=== PATIENT | male | born 1965 | race Caucasian/White ===

== ENCOUNTER → 2017-12-14 07:06 | Outpatient (CLI) | payer OTHER, SELFPAY ==
--- NOTE | 2017-12-14 | DI.MRI.S_ITS ---
PROCEDURE: MR ABDOMEN WO/W CON INDICATIONS: Possible liver lesion on ultrasound. TECHNIQUE: Coronal HASTE, axial 2D FLASH in- and [id number]; axial breath-hold T2 FSE. Dynamic axial VIBE during the administration of contrast; post-contrast coronal VIBE or 2D FLASH with fat saturation from the hepatic dome to the iliac crests. Optional diffusion weighted imaging and ADC may be performed. COMPARISON: [facility], US, US ABDOMEN COMPLETE, 12/07/2017, 9:07. FINDINGS: Image quality: Excellent. Lung bases: No basal pleural effusions. Heart size is normal. Solid organs: The liver is normal in size and smooth in contour. There are a few small cysts within the inferior right hepatic lobe measuring up to approximately 3 mm. There is minimal signal dropout on out of phase imaging compatible with mild fatty infiltration. There is subtle relative sparing along the gallbladder fossa. No discrete mass lesion is identified. No abnormal areas of enhancement or washout demonstrated following contrast administration. Biliary system is non dilated. Pancreas is normal in morphology. Spleen is normal in size and enhancement. No adrenal nodules. Both kidneys demonstrate normal size and enhancement, without hydronephrosis. Nodes and vessels: No retroperitoneal or mesenteric adenopathy by size criteria. Aorta and inferior vena cava are normal in size. Bowel and peritoneum: Visualized bowel loops are normal in caliber. No free fluid. Bones and soft tissues: No ventral hernias. Bone marrow is normal in overall signal. IMPRESSION: 1. No discrete hepatic mass or suspicious enhancement identified. 2. Mild hepatic steatosis with subtle relative sparing along the gallbladder fossa likely corresponding to the findings on recent ultrasound. Dictated by: James Liu M.D. on 12/14/2017 at 11:29 Approved by: James Liu M.D. on 12/14/2017 at 11:35
== END ==
PROVIDERS: Visit Provider Naturopath
DX: R93.2 Abnormal findings on diagnostic imaging of liver and biliary tract (principal)
CPT/HCPCS: 74183; A9579

== ENCOUNTER 2018-12-04 12:14 | Emergency (ER) | payer OTHER, SELFPAY ==
[2018-12-04 12:48] VITALS: BP 148/91; PULSE 74; RESP 18; TEMP 36.1; O2SAT 96
--- NOTE | 2018-12-04 12:55 | DI.RAD.S_ITS ---
PROCEDURE: XR CHEST 1V INDICATIONS: chest pain TECHNIQUE: One view of the chest was acquired. COMPARISON: [facility], , CHEST 1 VIEW, 09/02/2015, 14:20. FINDINGS: Surgical changes and devices: None. Lungs and pleura: Lungs are clear. No pleural effusions or pneumothorax. Mediastinum: Mediastinal contours appear normal. Heart size is normal. Bones and chest wall: No suspicious bony lesions. Overlying soft tissues appear unremarkable. IMPRESSION: No acute cardiopulmonary disease process. Dictated by: Lisbeth Willis MD, PhD on 12/04/2018 at 13:08 Approved by: Lisbeth Willis MD, PhD on 12/04/2018 at 13:08
[2018-12-04 13:40] LABS: INR 1.1 (0.9-1.3); Prothrombin Time 12.3 SECONDS (10.1-12.7)
[2018-12-04 13:43] LABS: Add Manual Diff / Slide Review NO; Basophils Absolute Auto 100 /uL (0-100); Basophils Percent Auto 1.2 % (0-2); Eosinophils Absolute Auto 100 /uL (0-450); Eosinophils Percent Auto 1.4 % (2-4); Hematocrit 47.5 % (41-53); Hemoglobin 16.1 g/dL (13.5-17.5); Lymphocytes Absolute Auto 1800 /uL (1100-4500); Lymphocytes Percent Auto 26.1 % (25-40); Mean Corpuscular Hemoglobin 29.9 PG (26-34); Mean Corpuscular Volume 88.2 fL (80-100); Monocytes Absolute Auto 600 /uL (0-900); Monocytes Percent Auto 9.3 % (3-14); Neutrophils Absolute Auto 4300 /uL (1500-7000); PTT Partial Thromboplastin Tim 29 SECONDS (26.4-36.2); Platelet Count 246 X10^3/uL (150-400); Red Blood Cell Count 5.38 X10^6/uL (4.5-5.9); White Blood Cell Count 6.9 X10^3/uL (4.5-11.0)
[2018-12-04 13:45] LABS: Alanine Aminotransferase 70 IU/L (21-72); Albumin 4.6 g/dL (3.5-5.0); Albumin Globulin Ratio 1.5 (1.0-2.8); Alkaline Phosphatase 64 U/L (38-126); Aspartate Aminotransferase 48 IU/L (17-59); BUN Creatinine Ratio 23.3 (6-22); Bilirubin Total 1.9 mg/dL (0.2-1.3); Blood Urea Nitrogen 21 mg/dL (9-20); Calcium 9.5 mg/dL (8.4-10.2); Carbon Dioxide 25 mmol/L (22-32); Chloride 104 mmol/L (98-107); Creatine Kinase 382 U/L (55-170); Estimated Glomerular Filt Rate > 60.0 mL/min (>60); Glucose 104 mg/dL (70-100); HEMOLYSIS < 15 (0-50); Lipase 71 U/L (23-300); Potassium 3.8 mmol/L (3.4-5.1); Sodium 140 mmol/L (137-145); Total Protein 7.6 g/dL (6.3-8.2)
[2018-12-04 13:57] LABS: Troponin I < 0.012 ng/mL (0.01-0.034)
[2018-12-04 14:00] VITALS: BP 140/93; PULSE 71; RESP 18
[2018-12-04 14:01] LABS: CKMB % Relative Index 0.8 % (1.5-5.0); Creatine Kinase MB 3.18 ng/mL (<2.37)
--- NOTE | 2018-12-04 14:15 | ED_ITS ---
HPI - Neuro Symptoms/Deficit General Chief Complaint: Neuro Symptoms/Deficit Stated Complaint: Self side face is stinging/quivering whole body LF Time Seen by Provider: 12/04/18 14:14 Source: patient Mode of arrival: ambulatory Limitations: no limitations History of Present Illness HPI Narrative: Patient is a 53-year-old male who is here for evaluation of a headache. He states that he gets ?migraines? he does not see his primary doctor or a headache specialist about this. He states that he gets headaches like when he has currently at least once a week. It occasionally causes him to miss work. He states that today he has 1 of his normal migraines. He stated that it started as normal way shortly after waking up this morning. He has not tried anything for prior to arrival. He normally just lets the headaches go away on their own after several hours. He stated that several hours prior to arrival here in the emergency department he started having ?tingling? on the left side of his face. He also states that her some heaviness on the left side of his face. He denies any other facial symptoms. He also stated that he had pain in his left upper extremity tingling in his left hand. Upon my evaluation the tingling in his left hand had completely resolved. He was still having some pain in his left upper extremity however he states that the blood pressure cup was not causing him any discomfort. He also states that he was still having some ?fullness? on his left side of his face but his symptoms have improved somewhat. Denies any rash. He did not associate the face and arm symptoms with a increase in his headache. denies any chest pain no shortness of breath. Related Data Allergies Allergy/AdvReac Type Severity Reaction Status Date / Time NSAIDS (Non-Steroidal Allergy Unknown PT STATES Unverified 11/08/17 13:02 Anti-Inflamma THAT IT IS ONLY TORADOL THAT HE CAN'T TAKE Review of Systems Constitutional Denies chills, Denies fever(s), Reports headache(s) and Denies weakness Eyes Denies blurry vision, Denies diplopia, Denies irritation and Denies itchy eyes ENT Ears, Nose, Mouth, and Throat: Denies vertigo, Denies dizziness, Reports headache(s), Denies neck pain, Denies nose pain, Denies disequilibrium and D enies throat swelling Comments: Tingling/fullness the left side of his face Cardiovascular Denies chest pain, Denies pedal edema and Denies dyspnea Respiratory Denies cough and Denies dyspnea Gastrointestinal Gastrointestinal: Denies abdominal pain, Denies nausea and Denies vomiting Genitourinary Denies dysuria Musculoskeletal Denies neck pain and Denies numbness Comments: Pain in his left upper extremity tingling his left hand Integumentary/Breasts Denies rash Neurologic Denies abnormal speech, Denies behavioral changes, Denies confusion, Denies vertigo, Denies dizziness, Reports headache(s), Denies numbness, Reports paresthesias, Denies disequilibrium and Denies weakness Psychiatric Denies behavioral changes and Denies confusion Hematologic/Lymphatic Denies easy bleeding and Denies easy bruising Allergic/Immunologic Denies urticaria, Denies itchy eyes and Denies throat swelling [facility] Medical History Frequent headaches (Acute) Family History (Updated 04/12/14 @ 00:00 by Lilli Leonardo PA-C) Mother Essential hypertension Social History Smoking Status: Never smoker Family History (Updated 04/12/14 @ 00:00 by Lilli Leonardo PA-C) Mother Essential hypertension Social History Smoking Status: Never smoker Exam Initial Vital Signs Initial Vital Signs: Vital Signs Temperature 97.0 F L 12/04/18 12:48 Pulse Rate 74 12/04/18 12:48 Respiratory Rate 18 12/04/18 12:48 Blood Pressure 148/91 H 12/04/18 12:48 Pulse Oximetry 96 12/04/18 12:48 Const General: cooperative, healthy appearing, comfortable, well developed, well groomed and No acute distress Orientation: alert, awake and oriented x3 HENMT Head: normal to inspection and normocephalic Eyes Conjunctivae: conjunctivae normal Pupils: PERRL EOM: EOM intact bilaterally Resp Effort & Inspection: normal respiratory effort Auscultation: clear to auscultation bilaterally Cardio Rate: regular rate Rhythm: regular rhythm GI Inspection: non-distended Palpation: soft, No firm and No tender Skin Lesions: no lesions Rashes: no rashes Neuro General: alert, awake and oriented x3 Cranial Nerves: CN's II-XI intact bilaterally Cognition: normal cognition Speech: speech normal Gait: normal gait Motor: muscle tone normal throughout Sensory Exam: no sensory deficits noted Extrem General: normal to inspection and capillary refill normal Left upper extremity: normal to inspection, full ROM, normal capillary refill and no joint enlargement; no cyanosis and no edema Psych Appearance: grossly normal and well kempt Scores GCS [place] coma scale eye opening: Spontaneous [place] coma scale verbal response: Orientated [place] coma scale motor response: Obey commands Yolanda coma scale total score: 15 HEART Score Heart Score history: Slightly Suspicious Heart Score EKG: Non-Specific repolarization disturbance Heart Score Age: 45-64 years old Heart Score risk factors: No known risk factors Heart Score troponin: < or = to normal limit Heart Score Total: 2 Course Orders Ordered: ED Orders 12/04/18 12:49 EKG-12 Lead Stat 12/04/18 12:55 XR chest 1V Stat 12/04/18 13:15 Complete Blood Count AUTO DIFF Stat Comprehensive Metabolic Panel Stat Lipase Stat Partial Thromboplastin Time Stat Prothrombin Time INR Stat Troponin & CK Cardiac Panel Stat Vital Signs - 8 hr 12/04/18 12:48 12/04/18 14:00 12/04/18 15:00 Temperature 97.0 F L Pulse Rate 74 71 75 Respiratory Rate 18 18 14 Blood Pressure 148/91 H Blood Pressure [Left Arm] 140/93 H 131/92 H Pulse Oximetry 96 100 MDM - Neuro Symptoms/Deficit Lab Data Attestation: I reviewed the patient's lab results. Result diagrams: 12/04/18 13:15 12/04/18 13:15 Lab Results 12/04/18 12/04/18 12/04/18 Range/Units 13:15 13:15 13:15 WBC 6.9 (4.5-11.0) X10^3/uL RBC 5.38 (4.5-5.9) X10^6/uL Hgb 16.1 (13.5-17.5) g/dL Hct 47.5 (41-53) % MCV 88.2 (80-100) fL MCH 29.9 (26-34) PG MCHC 34.0 (30-36) % RDW 13.0 (11.6-14.8) % Plt Count 246 (150-400) X10^3/uL Neut % (Auto) 62.0 (50-75) % Lymph % (Auto) 26.1 (25-40) % [place] % (Auto) 9.3 (3-14) % Eos % (Auto) 1.4 L (2-4) % Baso % (Auto) 1.2 (0-2) % Neut # (Auto) 4300 (2516-7172) /uL Lymph # (Auto) 1800 (9034-4135) /uL [place] # (Auto) 600 (0-900) /uL Eos # (Auto) 100 (0-450) /uL Baso # (Auto) 100 (0-100) /uL PT 12.3 (10.1-12.7) SECONDS INR 1.1 (0.9-1.3) APTT 29 (26.4-36.2) SECONDS Sodium 140 (137-145) mmol/L Potassium 3.8 (3.4-5.1) mmol/L Chloride 104 (98-107) mmol/L Carbon Dioxide 25 (22-32) mmol/L BUN 21 H (9-20) mg/dL Creatinine 0.90 (0.66-1.25) mg/dL Estimated GFR > 60.0 (>60) mL/min BUN/Creatinine Ratio 23.3 H (6-22) Glucose 104 H (70-100) mg/dL Calcium 9.5 (8.4-10.2) mg/dL Total Bilirubin 1.9 H (0.2-1.3) mg/dL AST 48 (17-59) IU/L ALT 70 (21-72) IU/L Alkaline Phosphatase 64 (38-126) U/L Total Creatine Kinase 382 H (55-170) U/L CK-MB (CK-2) 3.18 H (<2.37) ng/mL CK-MB (CK-2) Rel Index 0.8 L (1.5-5.0) % Troponin I < 0.012 (0.01-0.034) ng/mL Total Protein 7.6 (6.3-8.2) g/dL Albumin 4.6 (3.5-5.0) g/dL Globulin 3.0 (1.7-4.1) g/dL Albumin/Globulin Ratio 1.5 (1.0-2.8) Lipase 71 (23-300) U/L Imaging Data Chest x-ray: Radiologist's impression: [place] [id number] [place] [id number] XRay Report Signed Patient: Yoav Keller LMR#: [id number] : 1965Acct:[id number] Age/Sex: 53 / MDate of Service: 12/04/18 Loc: ED Accession Number: [id number] Procedure: XR chest 1V Ordering Provider: Logan Tenorio D.O. PROCEDURE: XR CHEST 1V INDICATIONS: chest pain TECHNIQUE: One view of the chest was acquired. COMPARISON: [facility], , CHEST 1 VIEW, 09/02/2015, 14:20. FINDINGS: Surgical changes and devices: None. Lungs and pleura: Lungs are clear. No pleural effusions or pneumothorax. Mediastinum: Mediastinal contours appear normal. Heart size is normal. Bones and chest wall: No suspicious bony lesions. Overlying soft tissues appear unremarkable. IMPRESSION: No acute cardiopulmonary disease process. Dictated by: Lisbeth Willis MD, PhD on 12/04/2018 at 13:08 Approved by: Lisbeth Willis MD, PhD on 12/04/2018 at 13:08 ECG Data Attestation: I personally reviewed and interpreted this ECG as follows: Prior ECG tracings: not available for review Interpretation: Sinus rhythm Normal axis Normal QTC Inverted T-waves V3 V4 V5 [address] changes MDM Narrative Medical decision making narrative: Patient does have a history of headaches. Has had a head CT in the past not specifically for headaches but had headaches long before his head CT was performed. Patient states that he was told there were no abnormalities. We had a long discussion regarding his headaches. Informed that he needed to talk with his primary doctor about potentially getting in to see a headache specialist. He has no skin changes on the side of his face that are consistent with zoster however we did discuss return precautions regarding this. Patient has a heart score of 2. He does have inverted T-waves on his EKG however no other signs of ischemia. His troponin is negative. his symptoms are not consistent with ACS. He is not having any chest pain. Will hold on workup for now. All the patient's symptoms today were objective findings. He had a normal neurologic exam. I do have a low suspicion for CVA given his symptoms and his exam. Will hold on head CT. I do feel that there is a high possibility that his symptoms are the result of an atypical migraine. I did discuss this with him and his . Will hold on further workup for now. Patient was given strict return precautions. Both he and his expressed understanding and agreement plan. Discharge Plan Departure Patient Disposition: Home Clinical Impression: Arm paresthesia, left, Facial paresthesia Headache Qualifiers: Headache type: unspecified Headache chronicity pattern: unspecified pattern Intractability: not intractable Qualified Code(s): R51 - Headache Discharge Date/Time: 12/04/18 15:28 Interventions: ED Discharge Assessment Last Done: 12/04/18 15:28 Instructions: DI for Headache Activity Restrictions/Additional Instructions: I do recommend that you contact your primary care provider to discuss the indications for referral to see Neurology/headache specialist. Return to the emergency department for any new or worsening symptoms
[2018-12-04 15:00] VITALS: BP 131/92; PULSE 75; RESP 14; O2SAT 100
== END 2018-12-04 15:28 | disposition home or self-care (01) ==
PROVIDERS: Emergency Provider Emergency Medicine
DX: R51 Headache (principal); R20.2 Paresthesia of skin; R20.9 Unspecified disturbances of skin sensation
CPT/HCPCS: 36415; 71045; 80053; 82550; 82553; 83690; 84484; 85025; 85610; 85730; 93005; 99283; 99285; 99291

== ENCOUNTER 2019-06-18 07:54 | Emergency (ER) | payer BC, SELFPAY ==
[2019-06-18 07:57] VITALS: BP 167/107; PULSE 72; RESP 20; TEMP 36.6; O2SAT 98
--- NOTE | 2019-06-18 08:07 | PC.NURSE ---
states, hurts to sit and laying down, +pacing in the room with spouse skin warm dry pink.
--- NOTE | 2019-06-18 08:15 | ED_ITS ---
HPI - Back Pain/Injury General Chief Complaint: Back Pain/Injury Stated Complaint: SI joint/nerve pain Time Seen by Provider: 06/18/19 08:13 Source: patient Mode of arrival: Ambulatory Limitations: no limitations History of Present Illness HPI Narrative: Patient is a 53-year-old male who presents with left-sided sciatica. He is not sure exactly what he did he does remember that 3 as he was brushing his daughter's hair when all the sudden he felt sharp shooting pain down his leg. He has been taking ibuprofen at home he went to the chiropractor he has done stretches he is wearing supportive belt nothing seems to be helping. He denies any change in bowel or bladder habits. MD Complaint: back pain Onset (ago): day(s) (3-4) Duration: constant Similar Symptoms Previously: No Location: lumbar spine (Left buttock area) Quality: burning, sharp and stabbing Related Data Previous Rx's Medication Instructions Recorded diazepam [Valium] 5 mg PO BID PRN #10 tab 06/18/19 hydrocodone-acetaminophen [[place]] 1 tab PO Q6H PRN #10 tab 06/18/19 prednisone 20 mg PO DAILY #5 tab 06/18/19 Allergies Allergy/AdvReac Type Severity Reaction Status Date / Time NSAIDS (Non-Steroidal Allergy Unknown PT STATES Verified 06/18/19 08:03 Anti-Inflamma THAT IT IS ONLY TORADOL THAT HE CAN'T TAKE Review of Systems Review of Systems Narrative: GENERAL: Denies chills,fever HEENT: Denies throat pain RESPIRATORY: Denies dyspnea, cough, wheezing CARDIOVASCULAR: Denies chest pain, palpitations GASTROINTESTINAL: Denies nausea, vomiting MUSCULOSKELETAL: See HPI SKIN: No rash, no laceration, no pruritus NEUROLOGIC: Denies weakness, dizziness, headache, numbness 8 point review of systems is negative except for those stated above and HPI Patient History Medical History Frequent headaches (Acute) Family History Mother Essential hypertension Social History Smoking Status: Never smoker alcohol intake frequency: 0-2 drinks per day Alcohol type: wine Substance Use Type: does not use Exam Initial Vital Signs Initial Vital Signs: Vital Signs Temperature 98 F 06/18/19 07:57 Pulse Rate 72 06/18/19 07:57 Respiratory Rate 20 06/18/19 07:57 Blood Pressure 167/107 H 06/18/19 07:57 Pulse Oximetry 98 06/18/19 07:57 GENERAL: Middle-aged male alert pacing uncomfortable HEENT: Head atraumatic,EOMI, pupils reactive CARDIOVASCULAR: Regular rate and rhythm without murmurs, rubs or gallops. RESPIRATORY: Breath sounds equal bilaterally, no wheezes rales or rhonchi. ABDOMEN: Soft, nontender. Normoactive bowel sounds all 4 quadrants. No guarding or rebound. BACK: No midline tenderness left buttock pain pain is reproducible to palpation. Sensation in lower legs intact and equal. EXTREMITIES: Normal range of motion, no clubbing or edema. Neurovascularly intact NEUROLOGICAL: Alert and oriented x4.Normal gait and speech. Cranial nerves II through XII grossly intact. SKIN: Warm, dry, no laceration, no petechiae, no rashes or lesions. Course Orders Ordered: Discontinued Medications Diazepam (Valium) 5 mg PO NOW ONE Stop: 06/18/19 08:14 Last Admin: 06/18/19 08:35 Dose: 5 mg Documented by: AMADO Ketorolac Tromethamine (Toradol) 30 mg IM NOW ONE Stop: 06/18/19 08:14 Last Admin: 06/18/19 08:35 Dose: 30 mg Documented by: AMADO Vital Signs Vital signs: Vital Signs - 8 hr 06/18/19 07:57 06/18/19 09:18 Temperature 98 F Pulse Rate 72 73 Respiratory Rate 20 15 Blood Pressure 167/107 H Blood Pressure [Right Arm] 164/116 H Pulse Oximetry 98 98 MDM - Back Pain/Injury MDM Narrative Medical decision making narrative: Patient does have some mild relief with Toradol and Valium. He had no complications from Toradol. It was listed as an allergy however he stated that he can have Toradol it must have been confused with something else he has had in the past without any issues. At this time I recommend he continue stretching and physical therapy. He may need an outpatient MRI however not indicated emergently at this time. Discharge Plan Departure Patient Disposition: Home Clinical Impression: Acute back pain with sciatica Qualifiers: Laterality: left Qualified Code(s): M54.42 - Lumbago with sciatica, left side Instructions: DI for Back Pain With Sciatica Activity Restrictions/Additional Instructions: *You have been diagnosed with back pain with sciatica *What to do: Continue stretches and chiropractic treatment. Recommend no heavy lifting like activity is encouraged. You may require outpatient MRI if needed however not indicated as an emergency at this time. *Continue to take medications as directed Prednisone 20 mg once a day for 5 days Valium 5 mg every 12 hours if needed for muscle spasm [place] 1 tablet every 6 hours if needed for severe pain *Follow up with your primary care provider in 2-3 days *Return to ER if you should have increasing weakness in legs changes in bowel or bladder habits or any new, worsening or concerning symptoms CONTROLLED SUBSTANCE DISCHARGE (Narcotoic/benzodiazepine/Flexeril/Phenergan) 1. You have been prescribed narcotic medications, it does have acetaminophen/Tylenol/paracetamol in it so do not take extra Tylenol or Tylenol containing products 2. Please understand that we cannot provide further refills of narcotics, benzodiazepines or controlled substances through the ED and her pain management will need to be through your provider. 3. While on these medications you cannot drive or operate heavy machinery. 4. You cannot sign legal documents or perform any duties such as this. 5. As long as you're taking opiate pain medications he should also be taking a stool softener such as Colace, Dulcolax, MiraLAX or prune juice, to help avoid constipation. Prescriptions: New prednisone 20 mg tablet 20 mg PO DAILY Qty: 5 RF: 0 diazepam [Valium] 5 mg tablet 5 mg PO BID PRN (Reason: muscle spasm) Qty: 10 RF: 0 hydrocodone-acetaminophen [[place]] 5-325 mg tablet 1 tab PO Q6H PRN (Reason: pain) Qty: 10 RF: 0 Referrals: Dominique Wong ND [Non-Staff] - Gabrielle Wong MD [Physician] -
[2019-06-18] MEDS: diazePAM 5 MG TABLET PO (08:35)
[2019-06-18] MEDS: KETOROLAC 60 MG/2 ML VIAL 30 MG IM (08:35)
[2019-06-18 09:18] VITALS: BP 164/116; PULSE 73; RESP 15; O2SAT 98
== END 2019-06-18 09:24 | disposition home or self-care (01) ==
PROVIDERS: Emergency Provider Emergency Medicine
DX: M54.42 Lumbago with sciatica, left side (principal)
CPT/HCPCS: 96372; 99282; 99283; J1885

== ENCOUNTER → 2019-10-28 19:36 | Outpatient (CLI) | payer BC, SELFPAY ==
--- NOTE | 2019-10-28 19:40 | DI.RAD.S_ITS ---
PROCEDURE: XR ANKLE RT MIN 3V INDICATIONS: R ankle pain post fall TECHNIQUE: 3 views of the ankle were acquired. COMPARISON: None. FINDINGS: Bones: No fractures or dislocations. Ankle mortise is normally aligned. No suspicious bony lesions. Small dorsal calcaneal enthesophyte is seen. Soft tissues: No tibiotalar joint effusion. Achilles tendon appears normal. IMPRESSION: No acute ankle fracture or dislocation. Dictated by: Avelino Strange M.D. on 10/28/2019 at 20:03 Approved by: Avelino Strange M.D. on 10/28/2019 at 20:04
--- NOTE | 2019-10-28 19:40 | DI.RAD.S_ITS ---
PROCEDURE: XR TIBIA FUBULA RT 2V INDICATIONS: FAll through deck, R knee swelling TECHNIQUE: 2 views of the tibia and fibula were acquired. COMPARISON: None. FINDINGS: Bones: No fractures or dislocations. No suspicious bony lesions. Soft tissues: No suspicious soft tissue calcifications or masses. IMPRESSION: No acute right lower leg fracture or dislocation. Dictated by: Avelino Strange M.D. on 10/28/2019 at 19:57 Approved by: Avelino Strange M.D. on 10/28/2019 at 19:57
--- NOTE | 2019-10-28 19:40 | DI.RAD.S_ITS ---
PROCEDURE: XR KNEE RT 3V INDICATIONS: FAll through deck, R knee swelling TECHNIQUE: 3 views of the knee were acquired. COMPARISON: None. FINDINGS: Bones: No fractures or dislocations. No suspicious bony lesions. Soft tissues: No significant joint effusion. No suspicious soft tissue calcifications. Soft tissue swelling along anterior aspect of patella and proximal patellar tendon is seen. IMPRESSION: No acute right knee fracture or dislocation. Soft tissue swelling along anterior aspect of right knee joint. No significant joint effusion. Dictated by: Avelino Strange M.D. on 10/28/2019 at 20:00 Approved by: Avelino Strange M.D. on 10/28/2019 at 20:03
== END ==
PROVIDERS: Referring Provider Nurse Practitioner; Visit Provider Nurse Practitioner
DX: M25.571 Pain in right ankle and joints of right foot (principal); M79.89 Other specified soft tissue disorders; M77.31 Calcaneal spur, right foot
CPT/HCPCS: 73562; 73590; 73610

== ENCOUNTER → 2020-12-18 18:00 | Outpatient (CLI) | payer BC, SELFPAY ==
[2020-12-18 18:34] LABS: COVID19 -Nasal RAPID Negative (Negative)
== END ==
PROVIDERS: Visit Provider Physician Assistant
DX: Z20.822 Contact with and (suspected) exposure to COVID-19 (principal)
CPT/HCPCS: 87635

== ENCOUNTER 2021-08-04 14:46 | Emergency (ER) | payer BC, SELFPAY ==
[2021-08-04] VITALS (11 sets, daily range): BP systolic 169–224; BP diastolic 102–125; PULSE 57–70; RESP 12–27; TEMP 37; O2SAT 94–99
--- NOTE | 2021-08-04 15:11 | DI.CT.S_ITS ---
PROCEDURE: CT HEAD/BRAIN WO CON INDICATIONS: head injury, htn TECHNIQUE: Noncontrast 4.5 mm thick angled axial sections acquired from the foramen magnum to the vertex, with coronal and sagittal reformats. For radiation dose reduction, the following was used: automated exposure control, adjustment of mA and/or kV according to patient size. COMPARISON: [facility], CT, CT HEAD WITHOUT CONTRAST, 07/29/2021, 8:29. [facility], CT, HEAD WITHOUT CONTRAST, 09/02/2015, 16:37. FINDINGS: Image quality: Excellent. CSF spaces: Basal cisterns are patent. No extra-axial fluid collections. Ventricles are normal in size and shape. Brain: No midline shift. No intracranial masses or hemorrhage. Andersen-white matter interface is normal. Skull and face: Calvarium and visualized facial bones are intact, without suspicious lesions. Sinuses: Visualized sinuses and mastoids are clear. IMPRESSION: No acute intracranial hemorrhage is seen. No acute intracranial process is seen. Stable from prior. Dictated by: Kai Sanchez M.D. on 08/04/2021 at 14:31 Approved by: Kai Sanchez M.D. on 08/04/2021 at 14:32
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
[2021-08-04 19:03] LABS: Add Manual Diff / Slide Review NO; Basophils Absolute Auto 100 /uL (0-100); Eosinophils Absolute Auto 200 /uL (0-450); Eosinophils Percent Auto 2.8 % (2-4); Hematocrit 47.3 % (41-53); Hemoglobin 16.7 g/dL (13.5-17.5); Lymphocytes Absolute Auto 2600 /uL (1100-4500); Lymphocytes Percent Auto 30.4 % (25-40); Mean Corpuscular HGB Conc 35.3 % (30-36); Mean Corpuscular Hemoglobin 30.6 PG (26-34); Mean Corpuscular Volume 86.8 fL (80-100); Monocytes Absolute Auto 800 /uL (0-900); Monocytes Percent Auto 9.2 % (3-14); Neutrophils Absolute Auto 4900 /uL (1500-7000); Neutrophils Percent Auto 56.6 % (50-75); Platelet Count 243 X10^3/uL (150-400); Red Blood Cell Count 5.45 X10^6/uL (4.5-5.9); Red Cell Distribution Width 13.2 % (11.6-14.8); White Blood Cell Count 8.7 X10^3/uL (4.5-11.0)
[2021-08-04 19:19] LABS: Alanine Aminotransferase 66 IU/L (<50); Albumin 4.6 g/dL (3.5-5.0); Albumin Globulin Ratio 1.4 (1.0-2.8); Alkaline Phosphatase 58 U/L (38-126); Aspartate Aminotransferase 35 IU/L (17-59); BUN Creatinine Ratio 23.5 (6-22); Bilirubin Total 1.1 mg/dL (0.2-1.3); Blood Urea Nitrogen 19 mg/dL (9-20); Calcium 9.9 mg/dL (8.4-10.2); Carbon Dioxide 27 mmol/L (22-32); Chloride 106 mmol/L (98-107); Creatine Kinase 66 U/L (55-170); Estimated Glomerular Filt Rate > 60.0 mL/min (>60); Globulin 3.4 g/dL (1.7-4.1); Glucose 103 mg/dL (70-100); HEMOLYSIS 18 (0-50); Lipase 72 U/L (23-300); Sodium 140 mmol/L (137-145)
[2021-08-04 19:30] LABS: Troponin I < 0.012 ng/mL (0.01-0.034)
[2021-08-04] MEDS: KETOROLAC 30 MG/ML VIAL 15 MG IV (19:30)
[2021-08-04] MEDS: CYCLOBENZAPRINE 10 MG PREPACK 1 BOTTLE MISC (20:48)
== END 2021-08-04 20:49 | disposition home or self-care (01) ==
PROVIDERS: Emergency Provider Emergency Medicine
DX: F07.81 Postconcussional syndrome (principal); I10 Essential (primary) hypertension
CPT/HCPCS: 36415; 70450; 80053; 82550; 83690; 84484; 85025; 93005; 93010; 96374; 99284; J1885

== ENCOUNTER → 2021-09-14 12:25 | Outpatient (CLI) | payer BC, SELFPAY ==
--- NOTE | 2021-09-14 | DI.MRI.S_ITS ---
PROCEDURE: MR HEAD/BRAIN WO CON INDICATIONS: POST CONCUSSION SYNDROME TECHNIQUE: Noncontrast axial T1 spin echo, axial T2 fast spin echo, sagittal and axial FLAIR, coronal T2 fast spin echo, axial gradient echo, axial diffusion and ADC through the brain. COMPARISON: [facility], CT, CT HEAD WITHOUT CONTRAST, 07/29/2021, 8:29. FINDINGS: Image quality: Excellent. CSF Spaces: Basal cisterns are patent. No extra-axial fluid collections. Ventricles are normal in size and shape. Brain: No intracranial masses or hemorrhage. Andersen/white matter interface is normal. Brainstem appears normal. Diffusion-weighted images demonstrate no acute ischemic insult. No chronic ischemic insults. Normal intravascular flow voids are present. Skull and face: Calvarium has normal marrow signal. Orbits appear normal. Sinuses: Mucosal thickening noted in the maxillary sinuses bilaterally, left greater than right. The mastoids are clear. IMPRESSION: 1. No acute intracranial disease process. 2. No areas of acute or chronic infarction. 3. No abnormal intracranial mass or mass effect. 4. No areas of acute or chronic intracranial hemorrhage. 5. Chronic bilateral maxillary sinusitis. Dictated by: Lisbeth Willis MD, PhD on 09/14/2021 at 16:16 Approved by: Lisbeth Willis MD, PhD on 09/14/2021 at 16:20
== END ==
PROVIDERS: PCP Naturopath; Referring Provider Psychiatry & Neurology Neurology; Visit Provider Psychiatry & Neurology Neurology
DX: F07.81 Postconcussional syndrome (principal); G44.309 Post-traumatic headache, unspecified, not intractable; G93.40 Encephalopathy, unspecified; S06.9X0S Unspecified intracranial injury without loss of consciousness, sequela
CPT/HCPCS: 70551

== ENCOUNTER 2023-10-03 19:03 | Emergency (ER) | payer OTHER, MEDICAID, SELFPAY ==
[2023-10-03] VITALS (11 sets, daily range): BP systolic 158–192; BP diastolic 99–115; PULSE 59–70; RESP 18; TEMP 36.8; O2SAT 95–99; BMI 29.9
[2023-10-03 19:50] LABS: Add Manual Diff / Slide Review NO; Basophils Absolute Auto 100 /uL (0-100); Eosinophils Absolute Auto 300 /uL (0-450); Eosinophils Percent Auto 2.9 % (2-4); Hematocrit 44.7 % (41-53); Hemoglobin 15.7 g/dL (13.5-17.5); Lymphocytes Absolute Auto 3500 /uL (1100-4500); Lymphocytes Percent Auto 34.9 % (25-40); Mean Corpuscular HGB Conc 35.1 % (30-36); Mean Corpuscular Hemoglobin 30.1 PG (26-34); Mean Corpuscular Volume 85.6 fL (80-100); Monocytes Absolute Auto 900 /uL (0-900); Neutrophils Absolute Auto 5200 /uL (1500-7000); Neutrophils Percent Auto 52.2 % (50-75); Platelet Count 239 X10^3/uL (150-400); Red Blood Cell Count 5.22 X10^6/uL (4.5-5.9); Red Cell Distribution Width 13.3 % (11.6-14.8)
[2023-10-03 20:03] LABS: Alanine Aminotransferase 48 IU/L (<50); Albumin 4.2 g/dL (3.5-5.0); Albumin Globulin Ratio 1.4 (1.0-2.8); Alkaline Phosphatase 67 U/L (38-126); Aspartate Aminotransferase 34 IU/L (17-59); BUN Creatinine Ratio 19.5 (6-22); Bilirubin Total 1.2 mg/dL (0.2-1.3); Blood Urea Nitrogen 15 mg/dL (9-20); Calcium 9.4 mg/dL (8.4-10.2); Carbon Dioxide 29 mmol/L (22-32); Chloride 106 mmol/L (98-107); Estimated Glomerular Filt Rate > 60 mL/min (>60); Globulin 3.1 g/dL (1.7-4.1); Glucose 112 mg/dL (70-100); HEMOLYSIS 28 (0-50); Lipase 92 U/L (23-300); Sodium 139 mmol/L (137-145); Total Protein 7.3 g/dL (6.3-8.2)
--- NOTE | 2023-10-03 20:38 | DI.US.S_ITS ---
PROCEDURE: US ABDOMEN LIMITED INDICATIONS: RUQ pain TECHNIQUE: Real-time scanning was performed of the abdominal and retroperitoneal organs, with image documentation. COMPARISON: , US, US ABDOMEN COMPLETE, 12/07/2017, 9:07. FINDINGS: Liver: Liver is normal in size. Increased liver parenchymal echotexture is seen. No discrete hepatic lesion. Gallbladder: There is no gallstone. No gallbladder wall thickening or pericholecystic fluid. No sonographic Diana sign. Biliary ducts: Intrahepatic bile ducts are non-dilated. Extrahepatic bile duct caliber measures 8.8 mm. Normal is 6-7 mm or less in diameter, or 10 mm or less post-cholecystectomy. Pancreas: Visualized portions of the pancreas are sonographically normal. Miscellaneous: No free abdominal fluid. IMPRESSION: 1. Hepatic steatosis, no discrete hepatic lesion. 2. Normal appearing gallbladder. 3. Prominent size of common bile duct. No evidence of choledocholithiasis. No intrahepatic biliary ductal dilatation. Dictated by: Avelino Strange M.D. on 10/03/2023 at 22:17 Approved by: Avelino Strange M.D. on 10/03/2023 at 22:19
[2023-10-04] VITALS: PULSE 61; O2SAT 96
[2023-10-04 00:01] VITALS: BP 162/99; PULSE 62; O2SAT 96
[2023-10-04 00:30] VITALS: PULSE 55; RESP 16; O2SAT 94
--- NOTE | 2023-10-04 00:52 | ED.GENADULT ---
HPI - General Adult General Chief complaint: Abdominal Pain Stated complaint: pain rt side going under ribs, tongue swelling Time Seen by Provider: 10/03/23 20:38 Source: patient Mode of arrival: Ambulatory History of Present Illness HPI narrative: 58-year-old gentleman with a prior history of diverticulitis with partial colon resection. Who tends to avoid medical care reports to the emergency department today complaining of 4 days of right upper quadrant pain radiating around through to his back. This morning also noted some tongue swelling coming cramping in his hands and legs, states that he has been under increasing stressors lately. He describes the pain is simply constant pain, does not change with eating or fasting. Bowel movement does not make a difference. If he sits up and leans forward it is more tender. He has not had any dysuria or hematuria. Related Data Previous Rx's Medication Instructions Recorded amoxicillin 875 mg-potassium 1 tab PO BID #14 tabs 03/05/21 clavulanate 125 mg tablet cyclobenzaprine 10 mg tablet 10 mg PO TID PRN muscle spasm #10 08/04/21 tabs ketorolac 10 mg tablet 10 mg PO TID PRN pain #14 tabs 08/04/21 Allergies Allergy/AdvReac Type Severity Reaction Status Date / Time NSAIDS (Non-Steroidal Allergy Unknown PT STATES Verified 03/05/21 07:31 Anti-Inflamma THAT IT IS ONLY TORADOL THAT HE CAN'T TAKE Review of Systems Review of Systems Narrative: Pertinent positive and negative findings as per HPI Patient History Medical History Generalized body aches Frequent headaches Family History Mother Essential hypertension Social History Smoking Status: Never smoker Smoking Status: Never smoker alcohol intake frequency: 0-2 drinks per day Alcohol type: wine Substance Use Type: does not use Exam Initial Vital Signs Initial Vital Signs: Vital Signs Temperature 98.3 F 10/03/23 19:11 Pulse Rate 69 10/03/23 19:11 Respiratory Rate 18 10/03/23 19:11 Blood Pressure 172/112 H 10/03/23 19:11 Pulse Oximetry 99 10/03/23 19:11 Oxygen Delivery Method Room Air 10/03/23 19:11 General: Healthy appearing, in no acute distress. Able to give a complete and coherent history. Well-nourished well-developed HEENT: Moist mucous membranes, normal sclera with reactive pupils, Neck: No JVD, supple Respiratory: Lungs are clear to auscultation, no wheezing no rales no rhonchi. Full and symmetrical air movement Cardiac: Regular rate and rhythm no murmurs no bruits Abdomen: Soft, mild tenderness in the right upper quadrant without rebound or guarding., good bowel tones, no flank pain Skin: Warm and dry, no rashes Neurologic: Grossly neurologically intact with no obvious asymmetries or abnormalities Extremities: No trauma, well perfused Psych: Cooperative, appropriate insight and affect Course Orders Ordered: ED Orders 10/03/23 19:17 EKG-12 Lead Stat 10/03/23 19:40 Complete Blood Count AUTO DIFF Stat Comprehensive Metabolic Panel Stat Lipase Stat 10/03/23 20:38 US abdomen limited Stat Ondansetron HCl (Ondansetron 4 Mg/2 Ml Inj) 4 mg IV NOW PRN PRN Reason: Nausea And Vomiting Ondansetron HCl (Ondansetron 4 Mg Odt) 4 mg PO NOW PRN PRN Reason: Nausea And Vomiting Vital Signs Vital signs: Vital Signs - 8 hr 10/03/23 19:11 10/03/23 21:09 10/03/23 21:10 Temperature 98.3 F Pulse Rate 69 70 69 Respiratory Rate 18 18 Blood Pressure 172/112 H 183/113 H Pulse Oximetry 99 99 97 Oxygen Delivery Method Room Air Room Air 10/03/23 21:11 10/03/23 21:11 10/03/23 21:17 Temperature Pulse Rate 63 Respiratory Rate Blood Pressure 183/113 H 190/104 H Pulse Oximetry 97 Oxygen Delivery Method 10/03/23 21:17 10/03/23 21:30 10/03/23 21:30 Temperature Pulse Rate 69 59 L Respiratory Rate 18 Blood Pressure 192/115 H Pulse Oximetry 98 97 Oxygen Delivery Method 10/03/23 21:34 10/03/23 21:34 10/03/23 22:00 Temperature Pulse Rate 65 Respiratory Rate Blood Pressure 173/106 H 158/99 H Pulse Oximetry 98 Oxygen Delivery Method 10/03/23 22:00 10/03/23 22:30 10/03/23 22:30 Temperature Pulse Rate 64 63 Respiratory Rate Blood Pressure 163/101 H Pulse Oximetry 96 95 Oxygen Delivery Method Room Air 10/03/23 23:00 10/03/23 23:00 10/03/23 23:30 Temperature Pulse Rate 64 63 Respiratory Rate Blood Pressure 180/102 H Pulse Oximetry 95 96 Oxygen Delivery Method Room Air 10/03/23 23:30 10/04/23 00:00 10/04/23 00:01 Temperature Pulse Rate 61 Respiratory Rate Blood Pressure 178/107 H 162/99 H Pulse Oximetry 96 Oxygen Delivery Method 10/04/23 00:01 Temperature Pulse Rate 62 Respiratory Rate Blood Pressure Pulse Oximetry 96 Oxygen Delivery Method Medical Decision Making Lab Data 10/03/23 19:40 10/03/23 19:40 Labs: Lab Results 10/03/23 Range/Units 19:40 WBC 10.0 (4.5-11.0) X10^3/uL RBC 5.22 (4.5-5.9) X10^6/uL Hgb 15.7 (13.5-17.5) g/dL Hct 44.7 (41-53) % MCV 85.6 (80-100) fL MCH 30.1 (26-34) PG MCHC 35.1 (30-36) % RDW 13.3 (11.6-14.8) % Plt Count 239 (150-400) X10^3/uL Neut % (Auto) 52.2 (50-75) % Lymph % (Auto) 34.9 (25-40) % [place] % (Auto) 9.0 (3-14) % Eos % (Auto) 2.9 (2-4) % Baso % (Auto) 1.0 (0-2) % Neut # (Auto) 5200 (5951-3186) /uL Lymph # (Auto) 3500 (6587-5827) /uL [place] # (Auto) 900 (0-900) /uL Eos # (Auto) 300 (0-450) /uL Baso # (Auto) 100 (0-100) /uL Sodium 139 (137-145) mmol/L Potassium 4.0 (3.4-5.1) mmol/L Chloride 106 (98-107) mmol/L Carbon Dioxide 29 (22-32) mmol/L BUN 15 (9-20) mg/dL Creatinine 0.77 (0.66-1.25) mg/dL Estimated GFR > 60 (>60) mL/min BUN/Creatinine Ratio 19.5 (6-22) Glucose 112 H (70-100) mg/dL Calcium 9.4 (8.4-10.2) mg/dL Total Bilirubin 1.2 (0.2-1.3) mg/dL AST 34 (17-59) IU/L ALT 48 (<50) IU/L Alkaline Phosphatase 67 (38-126) U/L Total Protein 7.3 (6.3-8.2) g/dL Albumin 4.2 (3.5-5.0) g/dL Globulin 3.1 (1.7-4.1) g/dL Albumin/Globulin Ratio 1.4 (1.0-2.8) Lipase 92 (23-300) U/L Urine Dip Bedside Urine Glucose Negative Bedside Urine Bilirubin - Negative Bedside Urine Ketone - Negative Urine Specific [place] 1.01 Bedside Urine Occult Blood - Negative Bedside Urine pH 7 Bedside Urine Protein - Negative Bedside Urine Urobilinogen - Negative Bedside Urine Nitrite - Negative Bedside Urine Leukocytes - Negative Esterase Point of care testing: Urine Dip Bedside Urine Glucose Negative Bedside Urine Bilirubin - Negative Bedside Urine Ketone - Negative Urine Specific [place] 1.01 Bedside Urine Occult Blood - Negative Bedside Urine pH 7 Bedside Urine Protein - Negative Bedside Urine Urobilinogen - Negative Bedside Urine Nitrite - Negative Bedside Urine Leukocytes - Negative Esterase Imaging Data us abd: Radiologist's Impression: PROCEDURE: US ABDOMEN LIMITED INDICATIONS: RUQ pain TECHNIQUE: Real-time scanning was performed of the abdominal and retroperitoneal organs, with image documentation. COMPARISON: [facility], US, US ABDOMEN COMPLETE, 12/07/2017, 9:07. FINDINGS: Liver: Liver is normal in size. Increased liver parenchymal echotexture is seen. No discrete hepatic lesion. Gallbladder: There is no gallstone. No gallbladder wall thickening or pericholecystic fluid. No sonographic Diana sign. Biliary ducts: Intrahepatic bile ducts are non-dilated. Extrahepatic bile duct caliber measures 8.8 mm. Normal is 6-7 mm or less in diameter, or 10 mm or less post-cholecystectomy. Pancreas: Visualized portions of the pancreas are sonographically normal. Miscellaneous: No free abdominal fluid. IMPRESSION: 1. Hepatic steatosis, no discrete hepatic lesion. 2. Normal appearing gallbladder. 3. Prominent size of common bile duct. No evidence of choledocholithiasis. No intrahepatic biliary ductal dilatation. Dictated by: Avelino Strange M.D. on 10/03/2023 at 22:17 MDM Narrative Medical decision making narrative: CC: Right upper quadrant pain for 4 days Complicating co-morbidities: Prior history of diverticulitis with surgery required Data collected from: patient Differential considered: Hepatitis, cholecystitis, gallbladder colic, choledocholithiasis, right lower lung pneumonia, constipation Exam documented above, pertinent findings include: Exam shows minimal tenderness in the right upper quadrant only. Remainder of exam is benign Lab Test results independently reviewed as above. Pertinent findings: CBC is unremarkable Chemistries are reassuring Lipase is within normal limits Independently reviewed EKG: Sinus rhythm at a rate of 67. Flipped T-waves anteriorly without any other ischemic changes Imaging studies independently reviewed: Ultrasound does not show gallbladder abnormalities, prominent bile duct size without evidence of choledocholithiasis or intrahepatic bear biliary ductal dilatation. Discussion: 58-year-old gentleman with right upper quadrant pain present for 4 days. Workup today shows no significant lab abnormalities, right upper quadrant ultrasound is benign. Patient is disgruntled that he has been waiting 5 hours in the emergency department for the workup that has proceeded. With shared decision-making we decided that not proceeding with a CT scan this evening with certainly acceptable. Encouraged him to return to the emergency department if symptoms worsen, next step in the workup would be a CT scan of the abdomen. He expresses understanding, questions are answered and he is safe for discharge Discharge Plan Departure Patient Disposition: Home Clinical Impression: Abdominal pain Qualifiers: Abdominal location: right upper quadrant Qualified Code(s): R10.11 - Right upper quadrant pain Instructions: DI for Abdominal Pain-Adult Activity Restrictions/Additional Instructions: Thank you for coming in today Your blood work does not show any evidence of acute infection, there is no liver abnormalities, kidney abnormalities or signs of acute pancreatitis. There was no evidence of anemia. The ultrasound shows a normal gallbladder, no evidence of gallstone stuck in the bile ducts. On your clinical exam I am not hearing anything that sounds like a pneumonia in the right lower part of your lungs, you do not have pain that would suggest you have an obstruction or need to go emergently to the operating room this evening. There was no skin changes to suggest shingles. At this time I do not have a complete explanation but I also do not suspect that there is a life-threatening etiology. I believe going home is safe. If you are continuing to have pain or symptoms change the next step in your workup would be a CT scan of the abdomen Prescriptions: No Action amoxicillin-pot clavulanate 875-125 mg tablet 1 tab PO BID Qty: 14 0RF cyclobenzaprine 10 mg tablet 10 mg PO TID PRN (Reason: muscle spasm) Qty: 10 0RF ketorolac 10 mg tablet 10 mg PO TID PRN (Reason: pain) Qty: 14 0RF Referrals: Dominique Wong ND [Primary Care Provider] - Stand Alone Forms: Patient Portal/API
[2023-10-04 01:06] VITALS: BP 155/86; PULSE 56; RESP 16; O2SAT 97
== END 2023-10-04 01:08 | disposition home or self-care (01) ==
PROVIDERS: Emergency Provider Emergency Medicine; PCP Naturopath
DX: R10.11 Right upper quadrant pain (principal)
CPT/HCPCS: 36415; 76705; 80053; 81003; 83690; 85025; 93005; 93010; 99284

== ENCOUNTER 2023-12-17 16:37 | Emergency (ER) | payer OTHER, MEDICAID, SELFPAY ==
[2023-12-17] VITALS (14 sets, daily range): BP systolic 168–185; BP diastolic 91–112; PULSE 67–77; RESP 18–22; TEMP 36.5; O2SAT 93–98; BMI 29.9
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
[2023-12-17 17:35] LABS: INR 0.9 (0.9-1.3); Prothrombin Time 10.8 SECONDS (9.4-12.5)
[2023-12-17 17:38] LABS: PTT Partial Thromboplastin Tim 33 SECONDS (25.1-36.5)
[2023-12-17 17:39] LABS: Alanine Aminotransferase 46 IU/L (<50); Albumin 4.3 g/dL (3.5-5.0); Albumin Globulin Ratio 1.5 (1.0-2.8); Alkaline Phosphatase 78 U/L (38-126); Aspartate Aminotransferase 31 IU/L (17-59); BUN Creatinine Ratio 21.5 (6-22); Bilirubin Total 1.2 mg/dL (0.2-1.3); Blood Urea Nitrogen 14 mg/dL (9-20); Calcium 9.3 mg/dL (8.4-10.2); Carbon Dioxide 25 mmol/L (22-32); Chloride 105 mmol/L (98-107); Creatine Kinase 131 U/L (55-170); Estimated Glomerular Filt Rate > 60 mL/min (>60); Globulin 2.8 g/dL (1.7-4.1); Glucose 202 mg/dL (70-100); HEMOLYSIS 47 (0-50); Lipase 69 U/L (23-300); Potassium 3.7 mmol/L (3.4-5.1); Sodium 138 mmol/L (137-145); Total Protein 7.1 g/dL (6.3-8.2)
[2023-12-17 17:50] LABS: Troponin I < 0.012 ng/mL (0.01-0.034)
[2023-12-17 17:55] LABS: Add Manual Diff / Slide Review NO; Basophils Absolute Auto 0 /uL (0-100); Basophils Percent Auto 0.3 % (0-2); Eosinophils Absolute Auto 200 /uL (0-450); Eosinophils Percent Auto 2.5 % (2-4); Hematocrit 45.9 % (41-53); Hemoglobin 16.3 g/dL (13.5-17.5); Lymphocytes Absolute Auto 2900 /uL (1100-4500); Lymphocytes Percent Auto 31.7 % (25-40); Mean Corpuscular HGB Conc 35.6 % (30-36); Mean Corpuscular Hemoglobin 30.7 PG (26-34); Mean Corpuscular Volume 86.1 fL (80-100); Monocytes Absolute Auto 800 /uL (0-900); Monocytes Percent Auto 8.3 % (3-14); Neutrophils Absolute Auto 5300 /uL (1500-7000); Neutrophils Percent Auto 57.2 % (50-75); Platelet Count 243 X10^3/uL (150-400); Red Blood Cell Count 5.33 X10^6/uL (4.5-5.9); Red Cell Distribution Width 13.5 % (11.6-14.8); White Blood Cell Count 9.2 X10^3/uL (4.5-11.0)
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
[2023-12-17] MEDS: ONDANSETRON 4 MG ODT PREPACK 1 BOTTLE MISC (22:00)
== END 2023-12-17 22:04 | disposition home or self-care (01) ==
PROVIDERS: Emergency Medicine; Emergency Provider Emergency Medicine; PCP Naturopath
DX: S20.213A Contusion of bilateral front wall of thorax, initial encounter (principal); R07.89 Other chest pain; R11.2 Nausea with vomiting, unspecified; W51.XXXA Accidental striking against or bumped into by another person, initial encounter
CPT/HCPCS: 36415; 71111; 71275; 74177; 80053; 82550; 83690; 83735; 84484; 85025; 85610; 85730; 93005; 99283; Q9967

== ENCOUNTER 2024-07-16 08:36 | Emergency (ER) | payer OTHER, MEDICAID, SELFPAY ==
[2024-07-16] VITALS (16 sets, daily range): BP systolic 122–166; BP diastolic 78–96; PULSE 49–70; RESP 16–22; TEMP 36.5–36.9; O2SAT 92–98; BMI 29.9
--- NOTE | 2024-07-16 09:27 | ED_ITS ---
HPI - Back Pain/Injury General Chief Complaint: Back Pain/Injury Stated Complaint: back pain Time Seen by Provider: 07/16/24 09:00 Source: patient History of Present Illness HPI Narrative: Patient here with for complaints mid and lower back pain that started yesterday morning it was playing with family on the floor. He could not get back up. Has not been able to walk very well. Denies any bowel or bladder incontinence or retention. No saddle paresthesia. Pain radiates down to both feet. With tingling. Shoes and socks removed for exam. No prior history of MRI or physical therapy or surgery in the back. This is the 3rd episode of back pain he has had recently Related Data Previous Rx's Medication Instructions Recorded amoxicillin 875 mg-potassium 1 tab PO BID #14 tabs 03/05/21 clavulanate 125 mg tablet cyclobenzaprine 10 mg tablet 10 mg PO TID PRN muscle spasm #10 08/04/21 tabs ketorolac 10 mg tablet 10 mg PO TID PRN pain #14 tabs 08/04/21 hydrocodone 5 mg-acetaminophen 325 1 tab PO Q6H PRN pain #20 tabs 07/16/24 mg tablet Allergies Allergy/AdvReac Type Severity Reaction Status Date / Time NSAIDS (Non-Steroidal Allergy Unknown PT STATES Verified 03/05/21 07:31 Anti-Inflamma THAT IT IS ONLY TORADOL THAT HE CAN'T TAKE Review of Systems Review of Systems Narrative: GENERAL: Negative chills, fatigue, malaise, fever, sweats. HEENT: Negative sinus pain, ear pain, sore throat RESPIRATORY: Negative dyspnea, cough CARDIOVASCULAR: Negative chest pain, palpitations GASTROINTESTINAL: Negative nausea, vomiting, abdominal pain : Negative dysuria, frequency, hematuria MUSCULOSKELETAL: Positive back, muscle or bony pain SKIN: Negative rash, skin lesions NEUROLOGIC: Negative weakness, positive numbness ROS Unobtainable: All systems reviewed & are unremarkable except as noted in HPI and below Patient History Medical History Generalized body aches Frequent headaches Family History Mother Essential hypertension Social History Smoking Status: Never smoker Smoking Status: Never smoker alcohol intake frequency: 0-2 drinks per day Alcohol type: wine Exam Narrative Exam Narrative: GENERAL: in no distress, not toxic not dyspneic HEAD: Normocephalic. EYES: Pupils equal round ENT: Mucous membranes moist. NECK: Trachea midline. CARDIOVASCULAR: Regular rate and rhythm RESPIRATORY: Clear to auscultation. Breath sounds equal bilaterally. No wheezes, rales, or rhonchi. GASTROINTESTINAL: Abdomen soft, non-tender EXTREMITIES: No gross deformities. Feet warm and soft strong pedal pulse brisk cap refills. BACK: No flank tenderness. Patient able to log roll to the left. There is reproducible bilateral lower parathoracic and paralumbar muscle tenderness. With limited range of motion at the waist due to pain. Increased leg pain with straight leg raises at 30?. NEURO: AOx4. Light touch intact bilateral feet and toes. Wiggles toes. Strong bilateral ankle flexion-extension as well as patellar reflexes. SKIN: Warm and dry PSYCH: Not anxious, is cooperative Initial Vital Signs Initial Vital Signs: Vital Signs Temperature 97.7 F 07/16/24 08:52 Pulse Rate 65 07/16/24 08:52 Respiratory Rate 16 07/16/24 08:52 Blood Pressure 166/92 H 07/16/24 08:52 Pulse Oximetry 96 07/16/24 08:52 Oxygen Delivery Method Room Air 07/16/24 08:52 Course Orders Ordered: Discontinued Medications Hydromorphone HCl (Hydromorphone 1 Mg Inj) 1 mg IV NOW ONE Stop: 07/16/24 09:27 Last Admin: 07/16/24 09:38 Dose: 1 mg Documented By: Hydromorphone HCl (Hydromorphone 1 Mg Inj) 1 mg IV NOW ONE Stop: 07/16/24 11:45 Last Admin: 07/16/24 11:48 Dose: 1 mg Documented By: Hydromorphone HCl (Hydromorphone 1 Mg Inj) 1 mg IV NOW ONE Stop: 07/16/24 13:48 Last Admin: 07/16/24 13:59 Dose: 1 mg Documented By: JARRET Lorazepam (Lorazepam 2 Mg/Ml Inj) 1 mg IV NOW ONE Stop: 07/16/24 10:40 Last Admin: 07/16/24 10:43 Dose: 1 mg Documented By: Ondansetron HCl (Ondansetron 4 Mg/2 Ml Inj) 4 mg IV NOW ONE Stop: 07/16/24 09:27 Last Admin: 07/16/24 09:38 Dose: 4 mg Documented By: Vital Signs Vital signs: Vital Signs - 8 hr 07/16/24 08:52 07/16/24 08:52 07/16/24 09:00 Temperature 97.7 F Pulse Rate 65 62 61 Respiratory Rate 16 Blood Pressure 166/92 H Pulse Oximetry 96 96 93 Oxygen Delivery Method Room Air 07/16/24 09:00 07/16/24 09:30 07/16/24 09:30 Temperature Pulse Rate 59 L Respiratory Rate Blood Pressure 143/81 H 153/86 H Pulse Oximetry 94 Oxygen Delivery Method 07/16/24 09:47 07/16/24 09:47 07/16/24 10:00 Temperature Pulse Rate 56 L 53 L Respiratory Rate Blood Pressure 142/96 H Pulse Oximetry 98 97 Oxygen Delivery Method 07/16/24 10:00 07/16/24 10:30 07/16/24 10:30 Temperature Pulse Rate 49 L Respiratory Rate Blood Pressure 151/95 H 138/85 Pulse Oximetry 95 Oxygen Delivery Method MDM - Back Pain/Injury Imaging Data MRI thoracic and lumbar spine: Radiologist's Impression: [place] [address] Magnetic Resonance Report Signed Patient: Yoav Keller MR#: [id number] : 1965 Acct:[id number] Age/Sex: 58 / M Date of Service: 07/16/24 Loc: ED Accession Number: [id number] Procedure: MR thoracic spine wo con Ordering Provider: Laz Giles MD PROCEDURE: MR THORACIC SPINE WO CON INDICATIONS: back pain/numbness legs TECHNIQUE: Noncontrast sagittal T1 spine echo and T2 fast spin echo, sagittal STIR, and T2 fast spin echo through the thoracic spine. COMPARISON: [facility], , MR LUMBAR SPINE WO CON, 07/16/2024, 10:39. FINDINGS: Image quality: Excellent. Alignment and Curvature: There is normal bony alignment. Bone Marrow: Marrow is of normal overall signal. No acute vertebral body compression fractures. Minimal chronic compressions of T7, T11, and T12. The Spinal Cord: Visualized spinal cord is normal in size and signal. Paraspinous Soft Tissues: No paravertebral masses. Miscellaneous: T5-T6: Mild left paracentral high signal disc protrusion abutting the left ventral cord. No central canal stenosis. Mild left lateral recess stenosis. T6-T7: Mild central posterior disc protrusion abutting the cord without canal stenosis. No foraminal stenosis. There is no canal stenosis or foraminal stenosis on this exam. IMPRESSION: 1. Thoracic cord is normal caliber and signal characteristics. 2. No canal stenosis or foraminal stenosis. 3. Small disc protrusions at T5-T6 and T6-T7. The T5-T6 left paracentral disc protrusion is likely relatively acute. 4. Old very mild compressions of T7, T11, and T12. Dictated by: Manuel Cates M.D. on 07/16/2024 at 11:32 Approved by: Manuel Cates M.D. on 07/16/2024 at 11:37 [place] [address] Magnetic Resonance Report Signed Patient: Yoav Keller MR#: [id number] : 1965 Acct:[id number] Age/Sex: 58 / M Date of Service: 07/16/24 Loc: ED Accession Number: [id number] Procedure: MR lumbar spine wo con Ordering Provider: Laz Giles MD PROCEDURE: MR LUMBAR SPINE WO CON INDICATIONS: back pain/numbness legs TECHNIQUE: Noncontrast sagittal T1 spin echo and T2 fast echo, sagittal STIR, and T2 fast spin echo through the lumbar spine. In cases with scoliosis, additional coronal T2 fast spin echo may be performed. COMPARISON: [facility], CT, CT TRAUMA CHEST ABDOMEN PELVIS, 12/17/2023, 21:06. FINDINGS: Image quality: Excellent. Alignment and Curvature: There is normal bony alignment. Bone Marrow: Marrow is of normal overall signal. No acute vertebral body compression fractures. Spinal Cord: Conus medullaris terminates at the L1 level. Visualized cord demonstrates normal signal and size. Paraspinous Soft Tissues: No paravertebral masses. T12-L1: No canal stenosis or foraminal stenosis. L1-L2: Mild disc height loss. Disc bulge. Minimal facet hypertrophy. No canal stenosis or foraminal stenosis. L2-L3: Disc bulge. Facet and ligament hypertrophy. Mild canal stenosis. No foraminal stenosis. L3-L4: Disc bulge with mild superimposed central posterior disc protrusion indenting on the ventral canal. Facet hypertrophy. Moderate canal stenosis. Reference axial T2 image 21 of series 8. Mild left foraminal stenosis. L4-L5: Disc bulge with central posterior superimposed disc protrusion and mild inferior disc extrusion. Facet and ligament hypertrophy. Severe canal stenosis. Reference axial T2 image 26 of series 8. The inferior extruded disc material is well seen on image 10 of sagittal series 5. Moderate bilateral foraminal narrowing with flattening deformity on the exiting bilateral L4 nerve roots. L5-S1: Chronic disc height loss. Disc bulge. Facet hypertrophy. No central canal stenosis. Moderate right foraminal narrowing and mild left foraminal narrowing. IMPRESSION: 1. No acute bony abnormality. 2. Canal stenosis is mild at L2-L3, moderate at L3-L4, and severe at L4-L5. 3. Multilevel foraminal narrowing as described above. Findings include moderate bilateral foraminal narrowing at L4-L5 and moderate right foraminal narrowing at L5-S1. Dictated by: Manuel Cates M.D. on 07/16/2024 at 11:38 Approved by: Manuel Cates M.D. on 07/16/2024 at 11:44 [facility] Narrative Medical decision making narrative: Patient here with for complaints mid and lower back pain that started yesterday morning it was playing with family on the floor. He could not get back up. Has not been able to walk very well. Denies any bowel or bladder incontinence or retention. No saddle paresthesia. Pain radiates down to both feet. With tingling. Shoes and socks removed for exam. No prior history of MRI or physical therapy or surgery in the back. This is the 3rd episode of back pain he has had. After history and exam, at this time are CT imaging department is broken. However hopefully it will be back up for CT imaging of the thoracic or lumbar spine. Dilaudid and Zofran ordered. No recent illness. No blood work indicated. No urinary complaints. No urinalysis indicated. [facility] Medical records reviewed: No recent visit for this complaint Differential considered: Includes but not limited to herniated test lumbar radiculopathy sciatica cauda equina aortic aneurysm/dissection Imaging studies independently reviewed: MRI thoracic and lumbar spine multilevel degenerative disc disease and bulging Consultations: None indicated at this time Treatments: Dilaudid Zofran Re-evaluations: 12:18 p.m.. Patient doing much better. Pain is controlled. Reviewed results and MRI with patient. Will need outpatient physical therapy and spine referral. Patient neurologically intact. is driving. He desires discharge home. Discussion: Appropriate for discharge home exam is reassuring. Pain is controlled. Return precautions reviewed. No neuro deficits. Patient desires discharge home. No fever no risk factors for diskitis or abscess. Patient has been able to be up and walking at time of discharge. Diagnosis: Lumbar degenerative disc disease Discharge Plan Departure Patient Disposition: Home Clinical Impression: Degenerative disc disease Qualifiers: Spinal region: thoracolumbar Qualified Code(s): M51.35 - Other intervertebral disc degeneration, thoracolumbar region Instructions: DI for Back Pain With Sciatica, DI for Degenerative Disc Disease Activity Restrictions/Additional Instructions: No driving operating machinery today or when taking prescribed pain medication. Please see family doctor in [place] for referral for outpatient physical therapy and student education specialist to evaluate your back pain and MRI that was done today. You may call provided ortho spine provider locally if approved by your family doctor. Short course pain medication has been provided for you. Return if worse if any questions or concerns. Prescriptions: New hydrocodone-acetaminophen 5-325 mg tablet 1 tab PO Q6H PRN (Reason: pain) Qty: 20 0RF No Action amoxicillin-pot clavulanate 875-125 mg tablet 1 tab PO BID Qty: 14 0RF cyclobenzaprine 10 mg tablet 10 mg PO TID PRN (Reason: muscle spasm) Qty: 10 0RF ketorolac 10 mg tablet 10 mg PO TID PRN (Reason: pain) Qty: 14 0RF Referrals: Dominique Wong ND [Primary Care Provider] - Anahi Watts MD [Physician] - Stand Alone Forms: Patient Portal/API/Survey
[2024-07-16] MEDS: ONDANSETRON 4 MG/2 ML INJ IV (09:38)
[2024-07-16] MEDS: HYDROMORPHONE 1 MG INJ IV ×3 (09:38→13:59)
--- NOTE | 2024-07-16 09:56 | DI.MRI.S_ITS ---
PROCEDURE: MR THORACIC SPINE WO CON INDICATIONS: back pain/numbness legs TECHNIQUE: Noncontrast sagittal T1 spine echo and T2 fast spin echo, sagittal STIR, and T2 fast spin echo through the thoracic spine. COMPARISON: [facility], , MR LUMBAR SPINE WO CON, 07/16/2024, 10:39. FINDINGS: Image quality: Excellent. Alignment and Curvature: There is normal bony alignment. Bone Marrow: Marrow is of normal overall signal. No acute vertebral body compression fractures. Minimal chronic compressions of T7, T11, and T12. The Spinal Cord: Visualized spinal cord is normal in size and signal. Paraspinous Soft Tissues: No paravertebral masses. Miscellaneous: T5-T6: Mild left paracentral high signal disc protrusion abutting the left ventral cord. No central canal stenosis. Mild left lateral recess stenosis. T6-T7: Mild central posterior disc protrusion abutting the cord without canal stenosis. No foraminal stenosis. There is no canal stenosis or foraminal stenosis on this exam. IMPRESSION: 1. Thoracic cord is normal caliber and signal characteristics. 2. No canal stenosis or foraminal stenosis. 3. Small disc protrusions at T5-T6 and T6-T7. The T5-T6 left paracentral disc protrusion is likely relatively acute. 4. Old very mild compressions of T7, T11, and T12. Dictated by: Manuel Cates M.D. on 07/16/2024 at 11:32 Approved by: Manuel Cates M.D. on 07/16/2024 at 11:37
--- NOTE | 2024-07-16 09:56 | DI.MRI.S_ITS ---
PROCEDURE: MR LUMBAR SPINE WO CON INDICATIONS: back pain/numbness legs TECHNIQUE: Noncontrast sagittal T1 spin echo and T2 fast echo, sagittal STIR, and T2 fast spin echo through the lumbar spine. In cases with scoliosis, additional coronal T2 fast spin echo may be performed. COMPARISON: [facility], CT, CT TRAUMA CHEST ABDOMEN PELVIS, 12/17/2023, 21:06. FINDINGS: Image quality: Excellent. Alignment and Curvature: There is normal bony alignment. Bone Marrow: Marrow is of normal overall signal. No acute vertebral body compression fractures. Spinal Cord: Conus medullaris terminates at the L1 level. Visualized cord demonstrates normal signal and size. Paraspinous Soft Tissues: No paravertebral masses. T12-L1: No canal stenosis or foraminal stenosis. L1-L2: Mild disc height loss. Disc bulge. Minimal facet hypertrophy. No canal stenosis or foraminal stenosis. L2-L3: Disc bulge. Facet and ligament hypertrophy. Mild canal stenosis. No foraminal stenosis. L3-L4: Disc bulge with mild superimposed central posterior disc protrusion indenting on the ventral canal. Facet hypertrophy. Moderate canal stenosis. Reference axial T2 image 21 of series 8. Mild left foraminal stenosis. L4-L5: Disc bulge with central posterior superimposed disc protrusion and mild inferior disc extrusion. Facet and ligament hypertrophy. Severe canal stenosis. Reference axial T2 image 26 of series 8. The inferior extruded disc material is well seen on image 10 of sagittal series 5. Moderate bilateral foraminal narrowing with flattening deformity on the exiting bilateral L4 nerve roots. L5-S1: Chronic disc height loss. Disc bulge. Facet hypertrophy. No central canal stenosis. Moderate right foraminal narrowing and mild left foraminal narrowing. IMPRESSION: 1. No acute bony abnormality. 2. Canal stenosis is mild at L2-L3, moderate at L3-L4, and severe at L4-L5. 3. Multilevel foraminal narrowing as described above. Findings include moderate bilateral foraminal narrowing at L4-L5 and moderate right foraminal narrowing at L5-S1. Dictated by: Manuel Cates M.D. on 07/16/2024 at 11:38 Approved by: Manuel Cates M.D. on 07/16/2024 at 11:44
[2024-07-16] MEDS: LORazepam 2 MG/ML INJ 1 MG IV (10:43)
== END 2024-07-16 14:15 | disposition home or self-care (01) ==
PROVIDERS: Emergency Provider Emergency Medicine; PCP Naturopath
DX: M51.35 Other intervertebral disc degeneration, thoracolumbar region (principal)
CPT/HCPCS: 36415; 72146; 72148; 96374; 96375; 96376; 99284; J1171; J2060; J2405